=== PATIENT | female | born 1960 | race Caucasian/White ===

== ENCOUNTER 2022-07-18 11:44 | Emergency (ER) | payer BC ==
[~2022-07-18] VITALS: Ht 167.6 cm; Wt 60.0 kg
--- NOTE | 2022-07-18 13:19 | NUR ---
first contact. ambulatory steady gait. back issues can not lay for extended time. resp even unlabored. maría thorne.
[2022-07-18 13:44] VITALS: BP 110/60
== END 2022-07-18 13:45 | disposition home or self-care (01) ==
LOC: ER 11:45
DX: S39.002A Unspecified injury of muscle, fascia and tendon of lower back, initial encounter (principal); S06.0X9A Concussion with loss of consciousness of unspecified duration, initial encounter; M54.89 Other dorsalgia; Z98.890 Other specified postprocedural states; W19.XXXA Unspecified fall, initial encounter; Y93.89 Activity, other specified; Y92.89 Other specified places as the place of occurrence of the external cause; Y99.8 Other external cause status
CPT/HCPCS: 70450; 72125; 72128; 72131; 72192; 99284